=== PATIENT | male | born 1960 | race Caucasian/White ===

== ENCOUNTER 2023-11-30 11:19 | Emergency (ER) | payer OTHER ==
[2023-11-30] MEDS ORDERED: Ipratropium/Albuterol 3 ML NEB ONE (12:00)
== END 2023-11-30 13:12 | disposition home or self-care (01) ==
LOC: MADERS 11:19
DX: J18.9 Pneumonia, unspecified organism (principal); I10 Essential (primary) hypertension; F90.9 Attention-deficit hyperactivity disorder, unspecified type; Z79.51 Long term (current) use of inhaled steroids; Z79.899 Other long term (current) drug therapy
CPT/HCPCS: 71046; 87070; 87205; 87804; 94640; 94760; J7620